=== PATIENT | male | born 1985 ===

== ENCOUNTER 2019-11-30 10:55 | Emergency (ER) | payer OTHER ==
[~2019-11-30] VITALS: Ht 175.3 cm; Wt 100.0 kg
[2019-11-30] MEDS ORDERED: FLUORESCEIN SODIUM 1 MG STRIP OS ONE (11:30)
[2019-11-30] MEDS ORDERED: FLUORESCEIN SODIUM 1 MG STRIP OD ONE (11:30)
[2019-11-30] MEDS ORDERED: PROPARACAINE HCL 0.5% 15 ML OPHTHALMIC SOLUTION OU ONE (11:30)
[2019-11-30] MEDS ORDERED: OLOPATADINE HCL 0.1% 5 ML OPHTHALMIC SOLUTION OU ONE (11:45)
[2019-11-30] MEDS ORDERED: CETIRIZINE HCL 10 MG TABLET PO ONE (11:45)
[2019-11-30] MEDS ORDERED: FLUTICASONE PROPIONATE 50 MCG/SPRAY 16 GM NASAL SPRAY NASAL ONE (11:45)
[2019-11-30] MEDS ORDERED: CIPR10DR10 OU (12:18)
[2019-11-30] MEDS ORDERED: PredniSONE 20 MG TABLET PO ONE (12:30)
[2019-11-30 14:14] VITALS: BP 127/73
== END 2019-11-30 14:17 | disposition home or self-care (01) ==
LOC: EMS 10:57
DX: H10.9 Unspecified conjunctivitis (principal); F17.210 Nicotine dependence, cigarettes, uncomplicated; E66.01 Morbid (severe) obesity due to excess calories; Z68.32 Body mass index [BMI] 32.0-32.9, adult; Z20.828 Contact with and (suspected) exposure to other viral communicable diseases
CPT/HCPCS: 36415; 71045; 84484; 87426; 93005; 99285; J7512